=== PATIENT | male | born 1955 | race Caucasian/White ===

== ENCOUNTER 2020-08-17 10:51 | Emergency (ER) | payer MEDICARE, OTHER, SELFPAY ==
[2020-08-17] VITALS (31 sets, daily range): BP systolic 124–157; BP diastolic 74–96; PULSE 52–122; RESP 12–34; TEMP 36.6–38.1; O2SAT 75–98; BMI 30.7
--- NOTE | 2020-08-17 10:58 | PC.NURSE ---
blood sugar 101
--- NOTE | 2020-08-17 11:01 | CT_ITS ---
Procedure: CT ANGIO NECK CLINICAL HISTORY: hx of cva new weakness COMPARISON: CT CT HEAD/BRAIN WO CON from 08/17/2020 TECHNIQUE: IV Contrast: 100ml Isovue 370 Axial images obtained with sagittal and coronal reformats. All CT scans at the facility use one or more dose reduction, viz: automated exposure control, ma/kV adjustment per patient size (including targeted exams where dose is matched to indication, i.e. head), or iterative reconstruction technique. FINDINGS: CTA neck: The aortic arch has an unremarkable appearance. There is a mild degree of motion artifact. This somewhat obscures fine detail. The common carotids and internal carotid arteries have an unremarkable appearance. The right vertebral is dominant and has an unremarkable appearance. The left vertebral has an unremarkable appearance in the neck but terminates abruptly intracranially with a branch 2 the AICA as well as a small branch to the basilar artery and could be related to chronic occlusion or congenital hyperplasia. No occlusion or dissection the of the carotids or vertebrals. CTA head: No aneurysm or dissection or AVM is evident. As mention in the neck CT report the left vertebral artery terminates intracranially into and AICA and small distal vertebral branch to the basilar artery. This may be due to chronic occlusion or congenital hypoplasia. The basilar artery is small.. There is persistent origin of both posterior cerebral arteries. Encephalomalacia changes are present in the left temporal frontal and parietal region. There is prominence of the left subdural space and to lesser degree on the right. 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 There is some shift of midline structures toward the left in the mid brain region. There is a prominent left-sided subdural hematoma with heme fluid level. No enhancing lesions are evident. IMPRESSION: 1. No acute occlusive change apparent. The carotids have an unremarkable appearance. There is abrupt change in caliber cranial portion of the left vertebral artery and could be due to chronic occlusion or congenital hypoplasia 2. 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 Prominent left-sided subdural space measuring up to 2.5 cm with team fluid level posteriorly consistent with acute or subacute subdural hematoma. There is also mild prominence of the subdural space on the right suggesting subdural effusion. Dictated by: Cameron Andres MD 08/17/2020 14:01 Cameron Andres MD in [facility] 08/17/2020 14:01
--- NOTE | 2020-08-17 11:01 | CT_ITS ---
PROCEDURE: CT HEAD/BRAIN WO CON CLINICAL INDICATION: hx of cva new weakness COMPARISON: CT CT ANGIO HEAD from 08/17/2020 TECHNIQUE: Axial images obtained. All CT scans at the facility use one or more dose reduction, viz: automated exposure control, ma/kV adjustment per patient size (including targeted exams where dose is matched to indication, i.e. head), or iterative reconstruction technique. FINDINGS: No previous exams are available for comparison there is moderate to severe encephalomalacia changes in the left frontal, temporal and parietal region with prominent subdural space. There is midline shift the structures toward the left to the area of volume loss. There is a moderate-sized left subdural hematoma with a hemo fluid level in the prominent subdural space in the temporoparietal region. The subdural hematoma measures to 1.2 cm in thickness posteriorly. There is a small amount of subarachnoid hemorrhage along the interhemispheric fissures posteriorly. No acute calvarial abnormalities. No mastoid effusion. There is a small air-fluid level in the left maxillary sinus with mild mucosal thickening of the right maxillary sinus. IMPRESSION: 1. Acute left-sided subdural hematoma superimposed upon diffuse encephalomalacia changes of the left frontal parietal and temporal region with prominent subdural space. Small amount of subarachnoid hemorrhage noted along the interhemispheric fissure superiorly. 2. Dr. Rizo was notified of the above findings by telephone 08/17/2020 at 1:35 p.m. Dictated by: Cameron Andres MD 08/17/2020 13:41 Cameron Andres MD in [facility] 08/17/2020 13:41
--- NOTE | 2020-08-17 11:01 | XR_ITS ---
PROCEDURE: XR CHEST PORTABLE CLINICAL HISTORY: altered mental status COMPARISON: CT CT ANGIO CHEST from 08/17/2020 FINDINGS: Mild cardiomegaly without failure. The lungs are clear without infiltrates, suspicious nodules, or pleural effusions. No acute bony abnormalities. IMPRESSION: No acute findings. Dictated by: Cameron Andres MD 08/17/2020 13:31 Cameron Andres MD in [facility] 08/17/2020 13:31
--- NOTE | 2020-08-17 11:01 | CT_ITS ---
PROCEDURE: CT ABDOMEN PELVIS W CON CLINICAL INDICATION: abdominal pain COMPARISON: No exams were available for comparison TECHNIQUE: IV Contrast: 75ML Isovue 370 Oral Contrast None Axial images obtained with sagittal and coronal reformats. All CT scans at the facility use one or more dose reduction, viz: automated exposure control, ma/kV adjustment per patient size (including targeted exams where dose is matched to indication, i.e. head), or iterative reconstruction technique. FINDINGS: Images of the lower thorax demonstrates gynecomastia. Gallstones are present. Mild fatty liver. No focal liver lesion. The spleen adrenal glands pancreas have unremarkable. Scarring is present along the lower pole of the left kidney. The appendix is not clearly delineated. No evidence of appendicitis. No intestinal obstruction or free air. There is mild gaseous distention of the colon with a few air-fluid levels in the colon. A Jiang catheter is present. Urinary bladder is contracted with mild wall thickening and a small amount of air within the urinary bladder. There is a small left inguinal hernia containing fat and a tiny right inguinal hernia containing fat. No acute bony anomalies. IMPRESSION: Mildly distended gas-filled colon with a few air-fluid levels suggesting colonic ileus or diarrhea disease. Cholelithiasis Dictated by: Cameron Andres MD 08/17/2020 14:13 Cameron Andres MD in [facility] 08/17/2020 14:13
--- NOTE | 2020-08-17 11:01 | CT_ITS ---
PROCEDURE: CT ANGIO CHEST CLINCIAL INDICATION: altered mental status COMPARISON: No exams were available for comparison TECHNIQUE: IV Contrast: 70ML Isovue 370 Axial images obtained with sagittal and coronal reformats. All CT scans at the facility use one or more dose reduction, viz: automated exposure control, ma/kV adjustment per patient size (including targeted exams where dose is matched to indication, i.e. head), or iterative reconstruction technique. FINDINGS: HEART AND MEDIASTINAL STRUCTURES: The peripheral pulmonary arteries are not well opacified. No central pulmonary embolus. No aortic aneurysm or dissection. LUNGS AND PLEURAL SPACES: There are low lung volumes with resultant vascular crowding. No lobar consolidation or collapse. There is prominence of the bronchovascular markings with mild diffuse increased density of the upper lobes and perihilar regions.. BONY STRUCTURES: No acute bony abnormalities apparent. UPPER ABDOMEN: See abdomen report ADDITIONAL FINDINGS: No other significant abnormalities. IMPRESSION: No evidence of pulmonary embolus. Peripheral pulmonary arteries are not well opacified. Low lung volumes with mild prominence of the pulmonary vessels and haziness of the lungs. Differential diagnosis would include congestive heart failure/plasma volume overload versus sequela from poor inspiration. Dictated by: Cameron Andres MD 08/17/2020 14:06 Cameron Andres MD in [facility] 08/17/2020 14:06
[2020-08-17 11:12] LABS: Microscopic, Urine URINE MICROSCOPIC (MICROSCOPIC)
--- NOTE | 2020-08-17 11:14 | PC.NURSE ---
LAB COMING TO DRAW LABS
[2020-08-17 11:21] LABS: Appearance,Urine CLEAR (Clear); Bilirubin,Urine Negative (Negative); Blood, Urine 3+ (Negative); Color,Urine YELLOW (Yellow); Glucose,Urine (UA) Negative (Negative); Ketones,Urine TRACE (Negative); Leukocyte Esterase,Urine Negative (Negative); Nitrate,Urine Negative (Negative); PH,Urine 5.5 (5.0-8.5); Protein,Urine Negative (Negative); Specific Gravity, Urine >= 1.030 (1.005-1.030); Urobilinogen,Urine 0.2 EU/dl (0.2)
[2020-08-17 11:25] LABS: RBC,Urine 20-50 #/hpf (0-3)
[2020-08-17 11:50] LABS: Basophils # 0.1 K/mm3 (0-0.2); Basophils % 1.6 % (0.1-2.0); Eosinophils % 0.1 % (0.1-12.0); Hematocrit 51.7 % (42.0-52.0); Hemoglobin 16.7 g/dL (14.1-18.0); Lymphocytes # 0.4 K/mm3 (0.7-4.5); Mean Corpuscular HGB Conc 32.4 g/dL (31.8-35.4); Mean Corpuscular Hemoglobin 31.1 pg (27.0-31.2); Mean Corpuscular Volume 96.2 fl (80-94); Mean Platelet Volume 7.2 fl (7.4-10.4); Monocytes # 1.3 K/mm3 (0.1-1.0); Monocytes % 14.4 % (1.7-9.3); Neutrophils % 78.8 % (37.0-80.0); Platelet Count 336 K/mm3 (142-424); Red Blood Count 5.37 M/mm3 (4.60-6.20); Red Cell Distribution Width 14.8 % (11.5-17.5); White Blood Count 8.9 K/mm3 (4.8-10.8)
--- NOTE | 2020-08-17 11:50 | [facility].EDAMS ---
ED Disposition Clinical Impression: Subdural hematoma Disposition: Xfer Short-Term Hosp Condition on Discharge: Fair Instructions: DI for Altered Mental Status Referrals: PCP,No [Non-Staff] - Forms: Transfer Record - ED - Critical Care Critical Care Time: No Attestation: On 08/17/20, the high probability of a clinically significant, sudden or life threatening deterioration of the following system(s) required my full and direct attention, intervention and personal management. The time I documented below is in addition to time spent performing reported procedures but includes the following listed in this critical care notation. Medical Decision Making - Medical Records Medical records reviewed: Yes: I reviewed the patient's medical records. - Dilip Inquiry Pt receiving controlled substance: No Vital Signs: 08/17/20 10:52 08/17/20 11:15 08/17/20 11:30 Temperature 100.6 F H Temperature Source Rectal Pulse Rate 102 H 106 H Pulse Rate [Radial] 122 H Respiratory Rate 12 24 24 Blood Pressure Blood Pressure [Right Arm] 124/75 Blood Pressure Mean Blood Pressure Mean [Right Arm] 91 Blood Pressure Position [Right Arm] Sitting 02 Sat by Pulse Oximetry 98 98 97 Oxygen Delivery Method Room Air 08/17/20 11:37 08/17/20 11:45 08/17/20 12:00 Temperature Temperature Source Pulse Rate 101 H 114 H 110 H Pulse Rate [Radial] Respiratory Rate 22 32 H 18 Blood Pressure 138/86 138/86 125/82 Blood Pressure [Right Arm] Blood Pressure Mean 95 Blood Pressure Mean [Right Arm] Blood Pressure Position [Right Arm] 02 Sat by Pulse Oximetry 96 96 97 Oxygen Delivery Method 08/17/20 13:07 08/17/20 13:31 Temperature Temperature Source Pulse Rate 101 H 101 H Pulse Rate [Radial] Respiratory Rate 18 18 Blood Pressure 140/92 H 140/88 Blood Pressure [Right Arm] Blood Pressure Mean 100 99 Blood Pressure Mean [Right Arm] Blood Pressure Position [Right Arm] 02 Sat by Pulse Oximetry 97 98 Oxygen Delivery Method - Lab Data Lab Results 08/17/20 11:00: Urine Color Yellow, Urine Appearance Clear, Urine pH 5.5, Ur Specific [place] >= 1.030, Urine Protein Negative, Urine Glucose (UA) Negative, Urine Ketones Trace, Urine Blood 3+, Urine Nitrate Negative, Urine Bilirubin Negative, Urine Urobilinogen 0.2, Ur Leukocyte Esterase Negative, Urine RBC 20-50, Urine WBC 3-5, Ur Squamous Epith Cells 3-5, Urine Bacteria None 08/17/20 11:30: WBC 8.9, RBC 5.37, Hgb 16.7, Hct 51.7, MCV 96.2 H, MCH 31.1, MCHC 32.4, RDW 14.8, Plt Count 336, MPV 7.2 L, Neut % (Auto) 78.8, Lymph % (Auto) 5.0 L, [place] % (Auto) 14.4 H, Eos % (Auto) 0.1, Baso % (Auto) 1.6, Neut # (Auto) 7.0, Lymph # (Auto) 0.4 L, [place] # (Auto) 1.3 H, Eos # (Auto) 0.0, Baso # (Auto) 0.1 08/17/20 11:30: Sodium 140, Potassium 3.4 L, Chloride 101, Carbon Dioxide 30, Anion Gap 12.4, BUN 16, Creatinine 1.10, Estimated Creat Clear 96, Estimated GFR 67, Est GFR ( Amer) 82, Glucose 115 H, Calcium 9.5, Total Bilirubin 0.7, AST 42, ALT 28, Alkaline Phosphatase 121, Troponin I 0.02, Total Protein 7.6, Albumin 4.0, Globulin 3.6 H, Albumin/Globulin Ratio 1.1 08/17/20 11:30: Lactate 1.2 08/17/20 11:30: Ammonia < 9 L 08/17/20 11:30: NT-Pro-B Natriuret Pep 99.9, Lipase 159 08/17/20 11:30: PT 29.2 H, INR 2.66 H Result diagrams: 08/17/20 11:30 08/17/20 11:30 Orders (Tests/Meds): ED MEDICATIONS Generic Name Dose Route Start Last Admin Trade Name Freq PRN Reason Stop Dose Admin Piperacillin Sod/Tazobactam 50 mls @ 100 mls/hr 08/17/20 11:15 08/17/20 12:07 Sod 3.375 gm/ Sodium Chloride IV 08/31/20 11:14 Not Given Q6H KAMILA Protocol Cefepime HCl 2 gm/ Sodium 100 mls @ 200 mls/hr 08/17/20 12:00 08/17/20 12:11 Chloride IV 08/31/20 11:59 200 mls/hr Q8H KAMILA Administration Protocol Sodium Chloride 250 mls @ 25 mls/hr 08/17/20 14:00 Sod Chlor 0.9% 250ml Bag IV 08/18/20 13:59 .Q10H KAMILA Discontinued M
[2020-08-17 11:52] LABS: Chloride 101 mmol/L (98-107)
[2020-08-17 11:53] LABS: Potassium 3.4 mmoL/L (3.5-5.1); Sodium 140 mmol/L (136-145)
[2020-08-17 11:55] LABS: Alanine Aminotransferase 28 U/L (12-78); Aspartate Amino Transferase 42 U/L (17-59); Bilirubin,Total 0.7 mg/dl (0.2-1.3); Blood Urea Nitrogen 16 mg/dl (9-20); Creatinine Clearance Estimated 96 mL/min (50-200); Estimated Glomerular Filt Rate 67 ml/min (>60); GFR (African American) 82 ML/MIN (>60); Lipase 159 U/L (23-300)
[2020-08-17 11:56] LABS: Albumin/Globulin Ratio 1.1 (1.1-1.8); Alkaline Phosphatase 121 U/L (38-126); Anion Gap 12.4 mEq/L (5-15); Calcium 9.5 mg/dl (8.4-10.2); Carbon Dioxide 30 mmol/L (22.0-30.0); Globulin 3.6 g/dL (1.3-3.2); Glucose 115 mg/dl (74-100); Total Protein,Serum 7.6 g/dl (6.3-8.2)
--- NOTE | 2020-08-17 12:00 | PC.NURSE ---
PT'S SISTER AT BEDSIDE.
[2020-08-17 12:05] LABS: Ammonia < 9 umol/L (9-30); Lactic Acid 1.2 mmol/L (0.7-2.1); NT Pro Brain Natriuretic Pep. 99.9 pg/mL (0-125)
[2020-08-17 12:08] LABS: Troponin I 0.02 ng/ml (0.00-0.034)
[2020-08-17 12:17] LABS: INR 2.66 (0.9-1.1); Prothrombin Time 29.2 seconds (10.1-12.5)
--- NOTE | 2020-08-17 13:06 | PC.NURSE ---
Pt returned from rad.
--- NOTE | 2020-08-17 13:57 | PC.NURSE ---
Called [facility] for possible transfer and they state that pt would not be appropriate for their facility.
--- NOTE | 2020-08-17 13:59 | PC.NURSE ---
Calling [facility] at this time.
--- NOTE | 2020-08-17 14:06 | PC.NURSE ---
[place] [facility] speaking with Dr deras at
[2020-08-17 14:48] LABS: Troponin I 0.02 ng/ml (0.00-0.034)
[2020-08-17 19:09] LABS: Barbiturates Screen,Urine Negative ng/ml (<200); Benzodiazepines Screen,Urine Negative ng/ml (<200)
[2020-08-17 19:10] LABS: Amphetamine/Metha Screen,Urine Negative ng/ml (<1000)
[2020-08-17 19:11] LABS: Cocaine Screen,Urine Negative ng/ml (<300); Methadone Screen,Urine Negative ng/ml (<300)
[2020-08-17 19:12] LABS: Cannabinoid Screen,Urine Negative ng/ml (<50)
[2020-08-17 19:13] LABS: Opiate Screen,Urine Positive ng/ml (<300); Phencyclidine Screen,Urine Negative ng/ml (<25)
== END 2020-08-17 18:11 | disposition short-term general hospital (02) ==
PROVIDERS: Emergency Provider Student in an Organized Health Care Education/Training Program; PCP Nurse Practitioner Family
DX: S06.5X0A Traumatic subdural hemorrhage without loss of consciousness, initial encounter (principal); I69.820 Aphasia following other cerebrovascular disease; Z88.0 Allergy status to penicillin; R06.02 Shortness of breath; Z11.52 Encounter for screening for COVID-19
CPT/HCPCS: 36415; 70450; 70496; 70498; 71045; 71275; 74177; 80053; 80305; 81001; 82140; 83605; 83690; 83880; 84484; 85025; 85610; 86900; 86901; 87040; 96365; 96367; 99284; J2543; P9017; Q9967; U0003